=== PATIENT | female | born 1950 | race Caucasian/White ===

== ENCOUNTER 2022-09-08 04:51 | Emergency (ER) | payer MEDICARE, SELFPAY ==
[2022-09-08 05:25] VITALS: BP 121/61; PULSE 63; RESP 14; TEMP 36.7; O2SAT 97; BMI 26.6
--- NOTE | 2022-09-08 06:34 | PC.NURSE ---
Pt A&Ox4, reports 7/10 mouth pain, states it started in her incisors, after having procedure at multiple dentist visits, now inflammation that radiates towards the palate, states I need antibiotics . Red bump to palate near top incisors noted.
--- NOTE | 2022-09-08 07:00 | ED.DENTAL ---
HPI - Dental/Oral General Chief complaint: Dental/Oral Stated complaint: Dental pain Time Seen by Provider: 09/08/22 06:34 Source: patient Mode of arrival: ambulatory Limitations: no limitations History of Present Illness HPI Narrative: Had dental work 2 weeks ago now with increased swelling and gum irritation. She is not on antibiotics. No allergies to antibiotics. MD Complaint: tooth pain Onset (ago): week(s) Duration: constant Severity: moderate Associated symptoms: gum swelling Related Data Previous Rx's Medication Instructions Recorded amoxicillin 875 mg-potassium 1 tab PO BID #14 tabs 09/08/22 clavulanate 125 mg tablet Allergies Allergy/AdvReac Type Severity Reaction Status Date / Time GURJIT Inhibitors AdvReac Cough Verified 09/08/22 05:24 Review of Systems Review of Systems: Yes all other systems are reviewed and are negative Neurologic: Denies Sensory deficit (Neuro) [facility] Social History Social History Advance Directives: No Advance Directives Information Provided: Yes Physical Exam Vital Signs: Vital Signs: Last Vital Signs Temp 98.1 F 09/08/22 05:25 Pulse 63 09/08/22 05:25 Resp 14 09/08/22 05:25 BP 121/61 09/08/22 05:25 Pulse Ox 97 09/08/22 05:25 O2 Del Method Room Air 09/08/22 05:25 BMI result Body Mass Index 26.6 Const: General: healthy appearing Nutritional Appearance: average body habitus Orientation/consciousness: oriented to person and patient oriented x3 Limitations: no limitations HEENT: Other: upper gums with redness and upper lip swollen with tendnerness Head: Yes normal to inspection Ears: external ears normal General nose exam: Normal external nose present Mouth: oropharynx normal Throat: Yes posterior oropharynx normal Eyes: General: appearance normal, both eyes and all related structures Neck: Other: supple Neck: Yes normal visual inspection Chest: Chest palpation & inspection: normal inspection of the chest Resp: Auscultation: clear to auscultation bilaterally Cardio: Jugular venous distension: no JVD Rate: regular rate Rhythm: regular rhythm Heart sounds: S1 normal heart sound present and S2 normal heart sound present GI: Inspection: Yes normal to inspection Palpation (GI): Soft to palpation, nontender and No hepatosplenomegaly present Auscultation: normal bowel sounds : General: Yes no CVA tenderness Back/Spine/Pelvis: Back: no CVA tenderness Skin: General skin exam: no rashes or lesions noted Neuro: General: oriented to person and patient oriented x3 Cranial nerves: Yes CN's II-XII intact bilaterally Motor exam (neuro): 5/5 motor strength present throughout Sensory Exam: No Sensory deficit (Neuro) Extrem: General: Yes normal to inspection Psych: Appearance: grossly normal Course Reevaluation(s) Reevaluation #1: will treat patient for dental infection Time: 07:08 Medical Decision Making Differential Diagnosis Differential Diagnoses: The differential diagnosis associated with the presentation includes (dental infection, dental abscess were considered) Tests considered The following testing was considered but not selected: I considered getting a CBC but patient is not toxic appearing Prescription Management I considered prescription management with: Pain Medication (I considered giving narcotics for oral infection) Discharge Plan Discharge Clinical Impression: Toothache, Dental infection Patient Disposition: Home, Self-Care Instructions: Toothache (ED) Prescriptions: New amoxicillin-pot clavulanate 875-125 mg tablet 1 tab PO BID Qty: 14 0RF Referrals: Manuel Yang MD [Primary Care Provider] - 5 days
[2022-09-08 07:30] VITALS: BP 120/56; PULSE 61; RESP 16; TEMP 37; O2SAT 98
[2022-09-08] MEDS: Amoxicillin/Potassium Clav 875 MG TABLET PO (07:45)
== END 2022-09-08 07:49 | disposition home or self-care (01) ==
PROVIDERS: Emergency Provider Emergency Medicine; PCP Internal Medicine
DX: K04.7 Periapical abscess without sinus (principal); K08.89 Other specified disorders of teeth and supporting structures
CPT/HCPCS: 99284

== ENCOUNTER 2022-09-08 20:39 | Emergency (ER) | payer MEDICARE, SELFPAY ==
[2022-09-08 20:44] VITALS: BP 139/73; PULSE 71; RESP 18; TEMP 36.8; O2SAT 98; BMI 27.1
--- NOTE | 2022-09-08 20:49 | ED.DENTAL ---
HPI - Dental/Oral General Chief complaint: Dental/Oral Stated complaint: dental infection Time Seen by Provider: 09/08/22 21:02 Source: patient Mode of arrival: ambulatory Limitations: no limitations History of Present Illness HPI Narrative: 72 yo female presenting with upper dental pain for the last 2 weeks. She had lower teeth filed down at [facility] which was causing some irritation, redness and swelling of her upper palate and pain of the right upper lateral incisor. She saw her dentist for follow up 3 days ago. She was told it was inflammatory and to give it time. seen here this morning and started on augmentin. no improvement with 2 doses. came to the er today to r/o sepsis and worsening infection. MD Complaint: tooth pain Teeth map: 1. mildly tender Onset (ago): week(s) Duration: constant Severity: moderate Relieving factors: NSAIDs Exacerbating factors: chewing Associated symptoms: gum swelling Treatment prior to arrival: oral analgesic Related Data Previous Rx's Medication Instructions Recorded acetaminophen 300 mg-codeine 15 mg 1 tab PO Q8H PRN severe pain 09/08/22 tablet (scale score 7-10) #10 tabs amoxicillin 875 mg-potassium 1 tab PO BID #14 tabs 09/08/22 clavulanate 125 mg tablet chlorhexidine gluconate 0.12 % 15 ml buccal BID #473 mL 09/08/22 mouthwash (Peridex) lidocaine HCl 2 % mucosal solution 5 ml mucous membrane Q6H PRN pain 09/08/22 #100 mL Allergies Allergy/AdvReac Type Severity Reaction Status Date / Time GURJIT Inhibitors AdvReac Cough Verified 09/08/22 20:49 Review of Systems Review of Systems: Yes all other systems are reviewed and are negative PMFSH Social History Social History Alcohol intake: never Advance Directives: No Advance Directives Information Provided: No Physical Exam Vital Signs: Vital Signs: Last Vital Signs Temp 98.2 F 09/08/22 20:44 Pulse 71 09/08/22 20:44 Resp 18 09/08/22 20:44 BP 139/73 09/08/22 20:44 Pulse Ox 98 09/08/22 20:44 O2 Del Method Room Air 09/08/22 20:44 BMI result Body Mass Index 27.1 Appearance: Alert. Oriented X3. No acute distress. HEENT: mild swelling of the soft tissue above the upper lip, hard palate with tenderness behind the front teeth with area of swelling without fluctuance. no trismus. no dental tenderness. no mobility. no gingival flutuance. CVS: Normal heart rate and rhythm. Pulses normal. Respiratory: No respiratory distress. Skin: Skin warm and dry. Normal skin color. Normal skin turgor. No rashes. Extremities: normal inspection Neuro: Oriented X 3. No motor deficit. No sensory deficit. Medical Decision Making Medical Decision Making MDM Narrative: 72 yo female presenting back to the ER with ongoing dental pain, seen here earlier today and started on abx. no improvement with 2 doses of augmentin. exam is reassuring without evidence of abscess. hard palpate with erythema, tenderness and inflammed area. VSS. no trismus. appears well. will increase pain control and have her continue her abx, follow up with dental saturday return precautions discussed. stable for d/c home. spoke with sister who is an RN from [place] as well to educate, correctional counselor/case manager and reassure. stable for d/c, all questions were answered Differential Diagnosis Differential Diagnoses: The differential diagnosis associated with the presentation includes dental trauma, gingival inflammation, abscess External Record Review External record reviewed: Outpatient record Prescription Management I considered prescription management with: Pain Medication and Antibiotic Critical Care Time Critical Care Time Critical Care Time: No Discharge Plan Discharge Clinical Impression: Toothache Patient Disposition: Home, Self-Care Instructions: Toothache (ED) Additional Instructions: continue augmentin as prescribed continue anti-inflammatory medication like motrin or aleve take the prescribed pain medication as needed for more severe pain recommend topical lidocaine or orajel to the area follow up with your dentist on saturday If you develop new or worsening symptoms call 911 or come back to the ER for further evaluation. Prescriptions: New acetaminophen-codeine 300-15 mg tablet 1 tab PO Q8H PRN (Reason: severe pain (scale score 7-10)) Qty: 10 0RF chlorhexidine gluconate [Peridex] 0.12 % mouthwash 15 ml buccal BID Qty: 473 0RF lidocaine HCl 2 % solution 5 ml mucous membrane Q6H PRN (Reason: pain) Qty: 100 0RF No Action amoxicillin-pot clavulanate 875-125 mg tablet 1 tab PO BID Qty: 14 0RF Interventions: ED Discharge Assessment Last Done: 09/08/22 20:55
== END 2022-09-08 21:03 | disposition home or self-care (01) ==
PROVIDERS: Emergency Provider Emergency Medicine; PCP Internal Medicine
DX: K08.89 Other specified disorders of teeth and supporting structures (principal)
CPT/HCPCS: 99282; 99283; 99284

== ENCOUNTER 2023-05-31 14:24 | Outpatient (AMB) | payer MEDICARE, SELFPAY ==
--- NOTE | 2023-05-31 14:53 | AM.OFFWIN_ITS ---
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 Patient states she had Easter brunch on Saturday (5 days ago), which included fatty foods causing her to have some diarrhea for 1-2 days. She states that she then started to develop some dysuria, urinary frequency and urgency. She denies any fevers or chills. She denies any flank or back pain. She denies any abdominal pain or nausea/vomiting. [facility] Social History Alcohol intake: never Review of Systems Const All systems reviewed & are unremarkable except as noted in HPI and below Reports no additional complaints Eyes Reports no additional complaints ENT Reports no additional complaints Card Reports no additional complaints Resp Reports no additional complaints GI Reports no additional complaints Reports no additional complaints Musc Reports no additional complaints Skin/Breast Reports system reviewed and no additional complaints, except as documented Neuro Reports no additional complaints Psych Reports no additional complaints Endo Reports no additional complaints Guicho/Lymph Reports no additional complaints Aller/Immun Reports no additional complaints Physical Exam Vital Signs: Last Vital Signs Temp 98.9 F 05/31/23 14:54 Pulse 50 05/31/23 14:54 BP 120/68 05/31/23 14:54 Pulse Ox 99 05/31/23 14:54 Oxygen Delivery Method Room Air 05/31/23 14:54 Const Other: Vital signs reviewed. Constitutional: Non-toxic appearing. No acute distress. Well-developed and well-nourished. HEENT: Normocephalic and atraumatic. Skin: Warm and dry. No rashes or lesions noted. Neck: Full and painless range of motion. No cervical lymphadenopathy. Cardio: Regular rate and rhythm. No murmurs, gallops, or rubs. No lower extremity edema. No JVD. Pulmonary: No respiratory distress. No accessory muscle usage. Clear to auscultation bilaterally without wheezing, crackles, or rhonchi. Gastrointestinal: Soft, nontender, and nondistended in all 4 quadrants. Genitourinary: No CVA tenderness. Musculoskeletal: Normal range of motion in joints throughout the body. No deformity or other signs of injury. Neuro: Alert and oriented x4. Cranial nerves 2-12 grossly intact. No focal deficits appreciated. Psych: Normal mood and affect. Results AMB Urinalysis, Automated UA Leukoctes 125 Coreen/uL Last Edit by Mary Mahoney CMA on 05/31/23 15:1 3 UA Nitrite Negative Last Edit by Mary Mahoney CMA on 05/31/23 15:13 UA Urobilinogen 0.2 mg/dL Last Edit by Mary Mahoney CMA on 05/31/23 15 :13 UA Protein 0 mg/dL Last Edit by Mary Mahoney CMA on 05/31/23 15:13 UA pH 6.5 Last Edit by Mary Mahoney CMA on 05/31/23 15:13 UA Blood 10 Bruce/uL Last Edit by Mary Mahoney CMA on 05/31/23 15:13 UA Specific [place] 1.005 Last Edit by Mary Mahoney CMA on 05/31/23 15:13 UA Ketone Negative Last Edit by Mary Mahoney CMA on 05/31/23 15:13 UA Bilirubin 0 mg/dL Last Edit by Mary Mahoney CMA on 05/31/23 15:13 UA Glucose 0 mg/dL Last Edit by Mary Mahoney CMA on 05/31/23 15:13 Results Reviewed Results Reviewed: Laboratory Last Values Urine pH (Auto) 6.5 05/31/23 15:11 Specific [place] (Auto) 1.005 05/31/23 15:11 Urine Protein (Auto) 0 mg/dL 05/31/23 15:11 Glucose (UA)(Auto) 0 mg/dL 05/31/23 15:11 Urine Ketones (Auto) Negative 05/31/23 15:11 Urine Blood (Auto) 10 Bruce/uL 05/31/23 15:11 Urine Nitrite (Auto) Negative 05/31/23 15:11 Urine Bilirubin (Auto) 0 mg/dL 05/31/23 15:11 Urine Urobilinogen (Auto) 0.2 mg/dL 05/31/23 15:11 Leukocyte Esterase (Auto) 125 Coreen/uL 05/31/23 15:11 Assessment & Plan Assessment & Plan (1) UTI (urinary tract infection): Code(s): N39.0 - Urinary tract infection, site not specified Qualifiers: Hematuria presence: without hematuria Urinary tract infection type: acute cystitis Qualified Code(s): N30.00 - Acute cystitis without hematuria Plan: This is a 72-year-old female who presented to the office complaining of urinary symptoms following several episodes of diarrhea. POCT urinalysis shows 2+ leukocyte esterase. Patient's vital signs are stable, physical exam is otherwise benign, and patient is overall nontoxic appearing. No CVA tenderness or systemic symptoms to suggest acute pyelonephritis. History and physical most consistent with an acute uncomplicated cystitis. Patient sent home on p.o. cefuroxime 250 mg twice daily x7 days. Patient was advised to follow-up here or proceed directly to the emergency room if they were to develop fever/chills, nausea/vomiting, flank/back pain, or worsening/persistent symptoms. Patient verbalizes understanding and they are in agreement with the plan. Orders: Orders AMB Urinalysis Automated Today Z13.9 - Encounter for screening, unspecified Medications: New cefuroxime axetil 250 mg PO BID 14 tabs 0RF Discontinued amoxicillin-pot clavulanate 875-125 mg Discontinued Reason: Order 1 tab PO BID 14 tabs 0RF chlorhexidine gluconate 0.12% (Peridex) Discontinued Reason: Patient Completed Course 15 mL buccal BID 473 mL 0RF acetaminophen-codeine 300-15 mg Discontinued Reason: Patient Completed Course 1 tab PO Q8H PRN 10 tabs 0RF severe pain (scale score 7-10) lidocaine HCl 2% Discontinued Reason: Patient Completed Course 5 mL mucous membrane Q6H PRN 100 mL 0RF pain Coding Level of Care Code New Pt Level 3 (92291) Diagnoses Acute cystitis without hematuria N30.00 Hematuria presence: without hematuria Urinary tract infection type: acute cystitis
[2023-05-31 14:54] VITALS: BP 120/68; PULSE 50; TEMP 37.2; O2SAT 99
== END 2023-05-31 15:20 | disposition home or self-care (01) ==
PROVIDERS: PCP Internal Medicine; Visit Provider Physician Assistant Medical
DX: N30.00 Acute cystitis without hematuria (principal)
CPT/HCPCS: 81003; 99203